=== PATIENT | female | born 1975 | race Caucasian/White ===

== ENCOUNTER 2023-11-21 04:07 | Day surgery (SDC) | payer BC ==
[2023-11-15 13:16] VITALS: BMI 30.1
[2023-11-21] MEDS ORDERED: FENTANYL CITRATE/PF 50 MCG/ML VIAL ONE ×2 (08:45→09:13)
[2023-11-21] MEDS ORDERED: MIDAZOLAM HCL 2 MG/2 ML SINGLE DOSE VIAL ONE (08:46)
[2023-11-21] MEDS ORDERED: PROPOFOL 20 ML ONE (08:46)
[2023-11-21] MEDS ORDERED: KETOROLAC TROMETHAMINE 30 MG/1 ML VIAL ONE (08:54)
[2023-11-21] MEDS ORDERED: ceFAZolin SODIUM 1 GM VIAL ONE (08:55)
[2023-11-21] MEDS: ceFAZolin SODIUM 1 GM VIAL IVPB ONE (08:55)
[2023-11-21] MEDS: LIDOCAINE HCL 1% PRESERVATIVE FREE - 30ML VIAL IJ ONE (08:58)
[2023-11-21] MEDS: BUPIVACAINE HCL/PF 0.5% (5 MG/ML) 30 ML VIAL IJ ONE (08:58)
[2023-11-21] MEDS ORDERED: ONDANSETRON 4 MG/2 ML VIAL IVPUSH PRN (09:57)
[2023-11-21] MEDS ORDERED: oxyCODONE HCL 5 MG TABLET PO PRN ×2 (09:57)
[2023-11-21] MEDS ORDERED: ACETAMINOPHEN 1000 MG/100 ML BAG IVPB ONE (09:57)
[2023-11-21] MEDS ORDERED: LACTATED RINGERS SOLUTION 1,000 ML IV SCH (10:00)
[2023-11-21 10:18] VITALS: RESP 18
[2023-11-21] MEDS: oxyCODONE HCL 5 MG TABLET PO ONE (10:33)
[2023-11-21 12:28] VITALS: BP 123/79; PULSE 69; TEMP 97.1
== END 2023-11-21 12:20 | disposition home or self-care (01) ==
LOC: JASU-SURG 04:07
PROVIDERS: ATTEND Podiatrist Foot Surgery
PROC: 0JBQ0ZZ Excision of Right Foot Subcutaneous Tissue and Fascia, Open Approach (ICD-10-PCS; principal; 2023-11-21 08:30)
DX: D21.21 Benign neoplasm of connective and other soft tissue of right lower limb, including hip (principal)
CPT/HCPCS: 73630-TC-RT-FY; 81025; 87070; 87075; 87205; 88304-TC; 97116-GP